=== PATIENT | male | born 1955 ===

== ENCOUNTER → 2023-07-24 06:20 | Day surgery (SDC) | payer OTHER, SELFPAY | LOC: GI 06:20 | PROVIDERS: ATTENDING PHYSICIAN Internal Medicine Gastroenterology | DX: Z12.11 Encounter for screening for malignant neoplasm of colon (principal); K57.30 Diverticulosis of large intestine without perforation or abscess without bleeding; K64.8 Other hemorrhoids | CPT/HCPCS: G0105 ==

== ENCOUNTER 2024-08-01 09:48 | Outpatient (RCR) | payer MEDICARE, SELFPAY | END 2024-08-01 23:59 | disposition home or self-care (01) | LOC: RPT 09:48 | PROVIDERS: ATTENDING PHYSICIAN Nurse Practitioner Family; FAMILY PHYSICIAN Internal Medicine | DX: M54.2 Cervicalgia (principal); M54.42 Lumbago with sciatica, left side (principal); Z73.6 Limitation of activities due to disability; R26.2 Difficulty in walking, not elsewhere classified | CPT/HCPCS: 97010; 97110; 97161 ==

== ENCOUNTER 2024-09-02 06:47 | Outpatient (RCR) | payer MEDICARE, SELFPAY | END 2024-09-02 23:59 | disposition home or self-care (01) | LOC: RPT 06:47 | PROVIDERS: ATTENDING PHYSICIAN Nurse Practitioner Family; FAMILY PHYSICIAN Internal Medicine | DX: M54.42 Lumbago with sciatica, left side (principal); Z73.6 Limitation of activities due to disability; R26.2 Difficulty in walking, not elsewhere classified; M54.2 Cervicalgia | CPT/HCPCS: 97010; 97110 ==

== ENCOUNTER 2024-10-03 08:01 | Outpatient (RCR) | payer MEDICARE, SELFPAY | END 2024-10-03 23:59 | disposition home or self-care (01) | LOC: RPT 08:01 | PROVIDERS: ATTENDING PHYSICIAN Nurse Practitioner Family; FAMILY PHYSICIAN Internal Medicine | DX: M54.42 Lumbago with sciatica, left side (principal); Z73.6 Limitation of activities due to disability; R26.2 Difficulty in walking, not elsewhere classified; M54.2 Cervicalgia | CPT/HCPCS: 97110 ==

== ENCOUNTER → 2024-10-12 08:25 | Outpatient (REF) | payer MEDICARE, SELFPAY | LOC: MRI 3T 08:25 | PROVIDERS: ATTENDING PHYSICIAN Nurse Practitioner Family; FAMILY PHYSICIAN Internal Medicine | DX: M54.32 Sciatica, left side (principal) | CPT/HCPCS: 72148 ==

== ENCOUNTER 2024-10-31 08:54 | Outpatient (RCR) | payer MEDICARE, SELFPAY | END 2024-10-31 23:59 | disposition home or self-care (01) | LOC: RPT 08:54 | PROVIDERS: ATTENDING PHYSICIAN Nurse Practitioner Family; FAMILY PHYSICIAN Internal Medicine | DX: M54.42 Lumbago with sciatica, left side (principal); Z73.6 Limitation of activities due to disability; R26.2 Difficulty in walking, not elsewhere classified; M54.2 Cervicalgia | CPT/HCPCS: 97110 ==